=== PATIENT | female | born 1955 | race Caucasian/White ===

== ENCOUNTER 2017-02-10 10:04 | Emergency (ER) | payer OTHER ==
[2016-03-25 01:27] VITALS: BMI 24.7
[~2017-02-10 10:04] MED LIST: BACLOFEN20 M1 PO; BUSPAR10 MG PO; CARDIZEM30 MG PO; CELEXA20 MG PO; ESTRACE1 MG PO; HALDOL ORA30 MG/15 M PO; PROTONIX40 MG PO; SEROQUEL300 MG PO; SYNTHROID100 MCG PO; TYLENOL W/CODEI1 TAB PO
== END 2017-02-10 11:02 | disposition home or self-care (01) ==
LOC: D.ER 10:04
DX: G89.29 Other chronic pain (principal); I10 Essential (primary) hypertension; I95.9 Hypotension, unspecified; M54.16 Radiculopathy, lumbar region; E11.9 Type 2 diabetes mellitus without complications

== ENCOUNTER 2018-07-18 20:27 | Emergency (ER) | payer SELFPAY ==
[~2018-07-18] VITALS: Ht 162.6 cm; Wt 90.9 kg
[2018-07-18 20:53] VITALS: Ht 162.6 cm; Wt 90.9 kg
[2018-07-18 21:27] LABS: APPEARANCE CLEAR (CLEAR); BILIRUBIN NEGATIVE (NEGATIVE); COLOR YELLOW (YELLOW); GLUCOSE NEGATIVE (NEGATIVE); KETONE NEGATIVE (NEGATIVE); NITRITE NEGATIVE (NEGATIVE); PROTEIN NEGATIVE (NEGATIVE); UROBILINOGEN NORMAL (NORMAL)
[2018-07-18 23:58] LABS: HEMATOCRIT 39.2 % (36.0-48.0); HEMOGLOBIN 12.9 g/dL (12-16); LYMPHOCYTES 37.9 % (15-50); MCH 29.4 pg (26.0-34.0); MCHC 32.9 g/dL (31.0-37.0); MCV 89.3 fL (80.0-100.0); MEAN PLATELET VOLUME 9.3 fL (7.4-10.4); NEUTROPHILS 51.6 % (40-80); RBC 4.39 10x6/uL (4.00-5.40); RDW 13.9 % (11.5-14.5)
[2018-07-19] LABS: PLATELET COUNT 153 10x3/uL (130-400)
[2018-07-19 00:18] LABS: ALBUMIN 3.2 g/dL (3.4-5.0); ANION GAP 12.1 mmol/L (8-16); BILIRUBIN - TOTAL 0.22 mg/dL (0.2-1.3); CALCIUM 7.9 mg/dL (8.5-10.1); CARBON DIOXIDE 25.9 mmol/L (21.0-32.0); CREATININE - SERUM 0.9 mg/dL (0.6-1.3); PROTEIN - SERUM 6.7 g/dL (6.4-8.2)
[2018-07-19 01:15] VITALS: BP 132/88
== END 2018-07-19 01:16 | disposition home or self-care (01) ==
LOC: D.ER 20:27
PROVIDERS: Family Medicine
DX: R10.9 Unspecified abdominal pain (principal)

== ENCOUNTER 2021-03-10 08:25 | Inpatient (IN) | payer MEDICARE, OTHER ==
[2021-03-05 08:55] LABS: BASOPHILS 0.5 % (0-2); EOSINOPHILS 0.2 % (0-7); HEMATOCRIT 41.9 % (36.0-48.0); HEMOGLOBIN 13.9 g/dL (12-16); LYMPHOCYTES 33.7 % (15-50); MCH 30.4 pg (26.0-34.0); MCHC 33.2 g/dL (31.0-37.0); MCV 91.6 fL (80.0-100.0); MEAN PLATELET VOLUME 8.2 fL (7.4-10.4); MONOCYTES 8.2 % (2-11); NEUTROPHILS 57.4 % (40-80); RBC 4.58 10x6/uL (4.00-5.40); WBC 7.3 10x3/uL (4.8-10.8)
[2021-03-05 09:04] LABS: CALC OSMOLALITY 280 mosm/kg (275-300); CALCIUM 8.7 mg/dL (8.5-10.1); CARBON DIOXIDE 27.6 mmol/L (21.0-32.0); CHLORIDE - SERUM 102 mmol/L (98-107); CREATININE - SERUM 0.8 mg/dL (0.6-1.3); GLUCOSE 110 mg/dL (74-106); PLATELET COUNT 192 10x3/uL (130-400); SODIUM 139 mmol/L (136-145); UREA NITROGEN 17 mg/dL (7-18); eGFR NON AFRICAN AMERICAN 76 mL/min (90-120)
[2021-03-05 09:05] LABS: APTT 32.6 SECONDS (22.8-39.4); INR 1.13 (0.85-1.17); PROTIME 13.4 SECONDS (11.6-15.0)
[2021-03-05 11:11] LABS: BILIRUBIN NEGATIVE (NEGATIVE); KETONE NEGATIVE mg/dL (< 1+); NITRITE NEGATIVE (NEGATIVE); UROBILINOGEN NORMAL mg/dL (< 2)
[2021-03-10] VITALS (7 sets, daily range): BP systolic 111–132; BP diastolic 65–86; BMI 34.7
[~2021-03-10] VITALS: Ht 144.8 cm; Wt 139.5 kg
--- NOTE | ~2021-03-10 | OP ---
PATIENT NAME: MOSES SIDDIQUI MEDICAL RECORD: [id number] :53 LOCATION:[id number] ADMISSION DATE:03/10/21 SURGEON: CARLOTA CURTIS MD DATE OF OPERATION: 03/10/2021 PREOPERATIVE DIAGNOSIS: Osteoarthritis, right knee. POSTOPERATIVE DIAGNOSIS: Osteoarthritis, right knee. PROCEDURE PERFORMED: Right total knee arthroplasty. INDICATIONS: Ms. Siddiqui is a 65-year-old female with history of right knee pain and arthritis. She has had this for some time now and it is getting progressively worse beginning to affect her mobility. She has elected to proceed with surgery for right total knee arthroplasty. Risks, benefits, and alternatives of surgery were discussed with the patient and consent was obtained. DESCRIPTION OF PROCEDURE: The patient was met in the holding area where her identity and confirmation of procedure was performed. The right lower extremity was marked and she was taken to the operating room where she was placed supine on the operating table, and anesthesia was administered. Tourniquet was applied to the right thigh and the right leg was prepped and draped in a sterile fashion. The patient received preoperative antibiotics as well as TXA and a timeout was performed for initiating the case. On the initiation of the case, the leg was exsanguinated and the tourniquet was raised. Total tourniquet time was 100 minutes. A medial parapatellar approach was utilized for exposure. Knee was taken into flexion. Incision was made over the anterior knee, dissected down to the extensor mechanism. Quad tendon was then split along its medial border curving medially around the patella and extending medially down the edge of the patellar tendon. Knee was then taken into extension and tissue from the fat pad of the patella and over the anterior distal femur was excised. A flap of tissue off the medial tibial plateau was elevated and a portion of the medial meniscus was excised. The patella was then everted and the knee was brought into flexion. The cruciate ligaments were excised. [place]'s line was marked. Femoral canal was then drilled and the intramedullary guide was inserted. The distal femoral cutting block was pinned into position and our distal femur cut was then completed. The femur was sized to a size 3. The 4-in-1 cutting block was placed and pinned into position. Our anterior, posterior, and chamfer cuts were completed. Trial for a box cut was then placed and adjusted for alignment over the distal femur. It was then secured with pins and our box cut was completed using a reciprocating saw and osteotome. We then turned our attention to the tibia. A PCL retractor was then inserted and the extramedullary tibial guide was placed. It was adjusted for alignment taking 4 mm off the medial tibial plateau. The tibial cutting block was pinned into position. We again assessed our alignment. Our tibial cut was then completed and the bony piece was removed. Osteophytes were removed from around the medial tibial plateau. We then placed our femoral trial and trialled with the tibial plates and felt to have good balance both in flexion and extension. We then turned our attention to the patella. The patella was everted and a caliper was used to set the width of the patella. Cautery was used around the circumference. Patella was then cut at the floor of lateral facet, sized to a size 27 and drilled. The trial components were then removed. The tibia was again exposed and PCL retractor was inserted. Tibia was sized to a size 2. The tibial plate was pinned into position and then prepared using a tibial punch. OPERATIVE REPORT [id number] MOSES SIDDIQUI The trial components were removed. The laminar budder was then inserted and osteophytes were removed from the posterior aspect of the distal femur. Knee was then irrigated thoroughly with saline. The joint solution was injected around the capsule of the proximal tibia and the distal femur. Knee was repositioned in flexion and the bony ends were dried. Final components were cemented into place. Excess cement was removed throughout this process. Trial poly was placed and the knee was held in full extension while the cement was allowed to dry. Patella was held with a patellar clamp. Once the cement was dry, it was again taken through range of motion and had some laxity mid range. We therefore elected to place an 11 poly, which had better fit and stability throughout range of motion. Our final size 11 posterior stabilized poly was placed and tapped into position. The knee was again taken through range of motion, had good fit and stability. The knee was irrigated thoroughly with saline. A drain was placed in the lateral gutter. The extensor mechanism was closed with Vicryl suture. The subcutaneous tissues were irrigated thoroughly with saline. The subcutaneous tissues were closed with Vicryl and the skin was closed with red. Sterile dressing was placed. The patient was turned back over to anesthesia where she was awakened and taken to recovery room in stable condition. POSTOPERATIVE PLAN: The patient is going to be admitted for routine postoperative care. She will receive 24 hours of postoperative antibiotics to be started on DVT prophylaxis tomorrow. Physical therapy will be consulted to assist with mobilization and weightbearing as tolerated, right lower extremity. We will see how she does with therapy. She may be able to return home or may require rehabilitation. COMPLICATIONS: None. ESTIMATED BLOOD LOSS: 50 mL. ANESTHESIA: Spinal with peripheral nerve block. TRANSINT:[id number] Voice Confirmation ID: [id number] DOCUMENT ID: [id number] CARLOTA CURTIS MD CC: [id number] DICTATION DATE: 03/10/21 1459 CORE PLACER: 03/10/21 2326 ADM IN [place] [id number] [place] [id number]
[~2021-03-10 08:25] MED LIST changes: +BACLOFEN10 MG PO; +ESTRACE 0.5 MG0.5 MG PO; -ESTRACE1 MG PO; +LEVO-T175 MCG PO; +MOBIC7.5 MG PO; +POTASSIUM CHLO20 MEQ PO; +PROZAC20 MG PO; +ROPINIROLE HCL1 MG PO; -SEROQUEL300 MG PO; +SEROQUEL400 MG PO; +TRAZODONE HCL150 MG PO
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
--- NOTE | 2021-03-10 15:30 | NUR ---
RECEIVED TO ROOM 2231 VIA BED FROM PACU. A/O X3. NO C/O AT THIS TIME. DRESSING TO RIGHT KNEE IS DRY AND INTACT. BERUMEN PATENT WTIH CLEAR YELLOW URINE. DENIES NEEDS.
--- NOTE | 2021-03-10 16:58 | NUR ---
REQUESTED AND GIVEN ONE HYDROCODONE PO FOR C/O RIGHT KNEE PAIN LEVEL 4. WILL MONITOR.
--- NOTE | 2021-03-10 16:58 | NUR ---
REQUETED AND GIVEN ONE HYDROCODONE PO FOR C/O RIGHT KNEE PAIN LEVEL 4. WILL MONITOR. SLIGHT TREMORS NOTED TO EXTREMETIES. WILL MONITOR.
--- NOTE | 2021-03-10 19:10 | NUR ---
PATIENT RESTING IN BED WITH NO S/S OF DISTRESS. PLACED SCD HOSE ON PATIENT. PATIENT DENIES NEEDS AT THIS TIME. BED IN LOWEST POSTION AND CALL LIGHT IN REACH. ENCOURAGED PATIENT TO CALL WITH NEEDS.
--- NOTE | 2021-03-10 19:20 | NUR ---
ATE ALL OF SUPPER. TREMORS GONE AT THIS TIME. DENIES NEEDS. ON CPM AT 1830 NO CHANGES NOTED.
--- NOTE | 2021-03-10 21:19 | NUR ---
ADMINISTERED MEDS PER ORDERS. PATIENT LYNNETTE WELL. ENCOURAGED PATIENT TO CALL WITH NEEDS.
[2021-03-11] VITALS: BP 107/63
[2021-03-11 04:00] VITALS: BP 115/69
[2021-03-11 05:30] LABS: BASOPHILS 0.2 % (0-2); EOSINOPHILS 0 % (0-7); HEMATOCRIT 35.8 % (36.0-48.0); HEMOGLOBIN 11.9 g/dL (12-16); LYMPHOCYTES 16.6 % (15-50); MCH 30.3 pg (26.0-34.0); MCHC 33.3 g/dL (31.0-37.0); MCV 91.2 fL (80.0-100.0); MEAN PLATELET VOLUME 8.3 fL (7.4-10.4); MONOCYTES 6.4 % (2-11); NEUTROPHILS 76.8 % (40-80); PLATELET COUNT 182 10x3/uL (130-400); RBC 3.92 10x6/uL (4.00-5.40); RDW 13.7 % (11.5-14.5); WBC 10.1 10x3/uL (4.8-10.8)
[2021-03-11 06:04] LABS: ANION GAP 10.7 mmol/L (8-16); BILIRUBIN - TOTAL 0.19 mg/dL (0.2-1.3); CALCIUM 7.8 mg/dL (8.5-10.1); CARBON DIOXIDE 27.2 mmol/L (21.0-32.0); CREATININE - SERUM 0.9 mg/dL (0.6-1.3); POTASSIUM - SERUM 3.9 mmol/L (3.5-5.1); PROTEIN - SERUM 5.9 g/dL (6.4-8.2)
--- NOTE | 2021-03-11 06:30 | NUR ---
D/C'D BERUMEN PER ORDERS, TIP INTACT. PLACED PATIENT ON CPM TO RIGHT KNEE.
--- NOTE | 2021-03-11 08:13 | NUR ---
AWAKE AND ALERT. ORIENTED X3. NO C/O AT THIS TIME. LUNGS ARE CLEAR BILATERALLY, NO COUGH NOTED. SKIN IS INTACT WITHOUT REDNESS EXCEPT INCISION TO RIGHT KNEE WHICH HAS A DRY INTACT DRESSING IN PLACE. ON CPM AT THIS TIME. SL TO LEFT FOREARM IS PATENT WITHOUT REDNESS AT INSERTION SITE. DENIES NEEDS.
--- NOTE | 2021-03-11 09:00 | NUR ---
ATE MOST OF BREAKFAST. TOOK AM MEDS WITHOUT DIFFICULTY. DENIES NEEDS.
[2021-03-11 09:02] VITALS: BP 120/81
[2021-03-11 13:22] VITALS: BP 136/76
--- NOTE | 2021-03-11 14:21 | NUR ---
REQUESTED AND GIVEN ONE HYDROCODONE PO FOR C/O RIGHT KNEE PAIN LEVEL 10. WILL MONITOR.
[2021-03-11 18:04] VITALS: BP 117/62
--- NOTE | 2021-03-11 19:12 | NUR ---
UP TO BSC WITH MIN ASSIST OF ONE. VOIDED CLEAR YELLOW URINE WITHOUT DIFFICULTY. DENIES NEEDS. NO CHANGES NOTED.
[2021-03-11 19:55] VITALS: BP 119/63
--- NOTE | 2021-03-11 20:00 | NUR ---
ALERT RESTING IN BED, CRYING WITH PAIN TO KNEE, HYDROCODONE GIVEN ORDERED WITH SCHEDULED PM MEDS, SEE SHIFT ASSESSMENT, CALL LIGHT IN REACH
[2021-03-12] VITALS (7 sets, daily range): BP systolic 121–151; BP diastolic 60–93; Ht 144.8 cm; Wt 139.5 kg
--- NOTE | 2021-03-12 06:00 | NUR ---
SUDDENLY CRYING OUT LOUD SAYING MY LEG IS KILLING ME, I CANT WAIT AN HOUR FOR A PAIN PILL, I NEED THE MORPHINE LIKE THEY GAVE ME YESTERDAY, BECAME MORE UPSET AND CRYING WHEN ENCOURAGED TO WAIT FOR PAIN PILL, MORPHINE GIVEN ORDERED IMEDIATELY CALMED DOWN PLACED ON CPM
[2021-03-12 07:17] LABS: BASOPHILS 0.3 % (0-2); EOSINOPHILS 0.2 % (0-7); HEMATOCRIT 34.5 % (36.0-48.0); HEMOGLOBIN 11.7 g/dL (12-16); LYMPHOCYTES 21.9 % (15-50); MCH 30.8 pg (26.0-34.0); MCHC 33.9 g/dL (31.0-37.0); MCV 90.9 fL (80.0-100.0); MEAN PLATELET VOLUME 8.1 fL (7.4-10.4); MONOCYTES 10.3 % (2-11); NEUTROPHILS 67.3 % (40-80); PLATELET COUNT 179 10x3/uL (130-400); RDW 13.9 % (11.5-14.5); WBC 8.2 10x3/uL (4.8-10.8)
[2021-03-12 07:45] LABS: ALBUMIN 3.1 g/dL (3.4-5.0); ALKALINE PHOSPHATASE 96 U/L (30-120); BILIRUBIN - TOTAL 0.32 mg/dL (0.2-1.3); CALC OSMOLALITY 283 mosm/kg (275-300); CALCIUM 7.6 mg/dL (8.5-10.1); CARBON DIOXIDE 26.4 mmol/L (21.0-32.0); CHLORIDE - SERUM 105 mmol/L (98-107); CREATININE - SERUM 0.8 mg/dL (0.6-1.3); GLUCOSE 136 mg/dL (74-106); SODIUM 141 mmol/L (136-145); UREA NITROGEN 15 mg/dL (7-18); eGFR NON AFRICAN AMERICAN 76 mL/min (90-120)
[2021-03-12 07:46] LABS: ALT (SGPT) 28 U/L (10-68)
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
--- NOTE | 2021-03-12 09:06 | NUR ---
PHYSICAL THERAPY STATES PT REFUSING TO WORK WITH THEM BECAUSE SHE IS UPSET WITH THE CARE SHE IS GETTING AND WANTS TO TALK TO DR CURTIS RIGHT NOW
--- NOTE | 2021-03-12 09:40 | MORECARE ---
CASE MANAGEMENT DISCHARGE SUMMARY PATIENT: MOSES GARCIA UNIT: [id number] ADM DATE: 03/11/21 AGE: 65 : 54 SEX: F ROOM/BED: [facility] AUTHOR: JUANA ELLISON PHYSICIAN: REFERRING PHYSICIAN: CARLOTA CURTIS MD DATE OF SERVICE: 03/12/21 Case Management Discharge Planning Summary DCP REVIEW SUMMARY ANTICIPATED D/C DATE: EXPECTED LOS : CASE STATUS: DCP Initiated INITIAL REVIEW: 03/10/2021 INITIAL REVIEWER: Lanny May FINAL DISCHARGE DISPOSITION: : FINAL REVIEWER: FINAL REVIEW DATE: DCP Focus Questions & Answers QUESTION: ANSWER : PATIENT: MOSES GARCIA ENCOUNTER: [id number] MEDICAL RECORD#: [id number] ADMISSION DATE: 03/11/2021 DISCHARGE DATE: ATTENDING MD: : AGE: 65 MARITAL STATUS: W DC PLAN ID: [id number] FACILITY: [facility] PRINTED ON: 03/12/21 9:40 CT All edits/amendments must be made on the electronic document DICTATION DATE: 03/12/21939 ADJUNCT INSTRUCTOR IN ECONOMICS: DM 03/12/21939 RPT#: [id number] DC DATE: STATUS: ADM IN [facility] [address] [place] [address] END OF REPORT
--- NOTE | 2021-03-12 20:00 | NUR ---
ALERT RESTING IN BED CPM IN USE, STATES PAIN MUCH BETTER THAN EARLIER, SEE SHIFT ASSESSMENT, CALL LIGHT IN REACH
[2021-03-13 04:43] VITALS: BP 121/68
[2021-03-13 06:16] LABS: BASOPHILS 0.5 % (0-2); EOSINOPHILS 0.4 % (0-7); HEMATOCRIT 34.7 % (36.0-48.0); HEMOGLOBIN 11.7 g/dL (12-16); LYMPHOCYTES 31.5 % (15-50); MCH 30.6 pg (26.0-34.0); MCHC 33.6 g/dL (31.0-37.0); MCV 91.1 fL (80.0-100.0); MONOCYTES 11.9 % (2-11); NEUTROPHILS 55.7 % (40-80); PLATELET COUNT 179 10x3/uL (130-400); RBC 3.82 10x6/uL (4.00-5.40); RDW 13.5 % (11.5-14.5)
[2021-03-13 06:33] LABS: ALBUMIN 2.9 g/dL (3.4-5.0); ALKALINE PHOSPHATASE 100 U/L (30-120); ALT (SGPT) 31 U/L (10-68); BILIRUBIN - TOTAL 0.46 mg/dL (0.2-1.3); CALC OSMOLALITY 281 mosm/kg (275-300); CALCIUM 7.6 mg/dL (8.5-10.1); CARBON DIOXIDE 26.6 mmol/L (21.0-32.0); CHLORIDE - SERUM 106 mmol/L (98-107); CREATININE - SERUM 0.6 mg/dL (0.6-1.3); GLUCOSE 129 mg/dL (74-106); POTASSIUM - SERUM 3.8 mmol/L (3.5-5.1); PROTEIN - SERUM 5.9 g/dL (6.4-8.2); SODIUM 141 mmol/L (136-145); eGFR NON AFRICAN AMERICAN > 90 mL/min (90-120)
[2021-03-13 06:34] LABS: UREA NITROGEN 10 mg/dL (7-18)
--- NOTE | 2021-03-13 07:56 | NUR ---
ALERT AND ORIENTED. ASSESSMENT COMPLETE. DENIES NEEDS. BED LOW. CALL GUPTA AND PERSONAL ITEMS IN REACH. WILL CONTINUE TO MONITOR.
[2021-03-13 08:40] VITALS: BP 133/85
--- NOTE | 2021-03-13 10:00 | NUR ---
RESTING IN BED. DENIES NEEDS. WILL CONTINUE TO MONITOR.
--- NOTE | 2021-03-13 10:07 | MORECARE ---
CASE MANAGEMENT DISCHARGE SUMMARY PATIENT: MOSES GARCIA UNIT: [id number] ADM DATE: 03/11/21 AGE: 65 : 54 SEX: F ROOM/BED: [facility] AUTHOR: JUANA ELLISON PHYSICIAN: REFERRING PHYSICIAN: CARLOTA CURTIS MD DATE OF SERVICE: 03/13/21 Case Management Discharge Planning Summary DCP REVIEW SUMMARY ANTICIPATED D/C DATE: EXPECTED LOS : CASE STATUS: DCP Initiated INITIAL REVIEW: 03/10/2021 INITIAL REVIEWER: Lanny May FINAL DISCHARGE DISPOSITION: : FINAL REVIEWER: FINAL REVIEW DATE: DCP Focus Questions & Answers QUESTION: ANSWER : PATIENT: MOSES GARCIA ENCOUNTER: [id number] MEDICAL RECORD#: [id number] ADMISSION DATE: 03/11/2021 DISCHARGE DATE: ATTENDING MD: : AGE: 65 MARITAL STATUS: W DC PLAN ID: [id number] FACILITY: [facility] PRINTED ON: 03/13/21 10:07 CT All edits/amendments must be made on the electronic document DICTATION DATE: 03/13/21 1007 CARPENTER FOREMAN: DM 03/13/21 1007 RPT#: [id number] DC DATE: STATUS: ADM IN [facility] [address] [place] [address] END OF REPORT
[2021-03-13 12:57] VITALS: BP 146/74
--- NOTE | 2021-03-13 13:05 | MORECARE ---
CASE MANAGEMENT DISCHARGE SUMMARY PATIENT: MOSES GARCIA UNIT: [id number] ADM DATE: 03/11/21 AGE: 65 : 54 SEX: F ROOM/BED: D.[facility] [place][note 2] AUTHOR: TERRA,DOC PHYSICIAN: REFERRING PHYSICIAN: CARLOTA CURTIS MD DATE OF SERVICE: 03/13/21 Case Management Discharge Planning Summary COMMENTS ENTERED DATE: 03/13/21 12:58 CT COMMENT TYPE: Discharge Planning REVIEWER: Lanny May CM MET WITH PATIENT AT BEDSIDE TO DISCUSS DC PLANNING NEEDS. PATIENT HAS ALL EQUIPMENT NEEDED THROUGH [facility] [facility]. SHE PLANS TO DC TO HOME TODAY AND WILL NEED HOME HEALTH. PATIENT LIVES ALONE BUT HAVE FRIENDS AND [employer]IENTAL [employer] MEMBERS THAT WILL HELP HER AT HOME. I HAVE FAXED REFERRAL TO [facility]. CM TO FOLLOW AND ASSIST NEEDED. DCP REVIEW SUMMARY ANTICIPATED D/C DATE: EXPECTED LOS : CASE STATUS: DCP Initiated INITIAL REVIEW: 03/10/2021 INITIAL REVIEWER: Lanny May FINAL DISCHARGE DISPOSITION: : FINAL REVIEWER: FINAL REVIEW DATE: DCP Focus Questions & Answers QUESTION: ANSWER : PROVIDER NETWORKING REVIEW DATE: 03/13/2021 SERVICE TYPE: Home Health Care REVIEWER: Lanny May PATIENT: MOSES GARCIA ENCOUNTER: [id number] MEDICAL RECORD#: [id number] ADMISSION DATE: 03/11/2021 DISCHARGE DATE: ATTENDING MD: EDY: AGE: 65 MARITAL STATUS: W DC PLAN ID: [id number] FACILITY: [facility] PRINTED ON: 03/13/21 13:05 CT All edits/amendments must be made on the electronic document DICTATION DATE: 03/13/21 1305 LAUNCH MANAGER: BRITNI 03/13/21 1305 RPT#: [id number] DC DATE: STATUS: ADM IN [facility] [address] [place] [address] END OF REPORT
[2021-03-13] MEDS ORDERED: PERCOCET 5-3251 TAB PO (13:09)
[2021-03-13] MEDS ORDERED: ELIQUIS2.5 MG PO (13:10)
--- NOTE | 2021-03-13 14:23 | NUR ---
DC EDUCATION PROVIDED BOTH WRITTEN AND VERBAL. VERBALIZED UNDERSTANDING. DENIES FURTHER QUESTIONS. IV REMOVED FROM RFA WITH TIP INTACT. DRY DRSG PROVIDED TO PATIENT FOR DRSG CHANGE. PATIENT DENIES NEEDS. PATIENT DC HOME WITH FRIEND WITH ALL BELONGINGS.
--- NOTE | 2021-03-14 09:50 | MORECARE ---
CASE MANAGEMENT DISCHARGE SUMMARY PATIENT: MOSES GARCIA UNIT: [id number] ADM DATE: 03/11/21 AGE: 65 : 54 SEX: F ROOM/BED: D.[facility] AUTHOR: TERRA,DOC PHYSICIAN: REFERRING PHYSICIAN: CARLOTA CURTIS MD DATE OF SERVICE: 03/14/21 Case Management Discharge Planning Summary COMMENTS ENTERED DATE: 03/13/21 12:58 CT COMMENT TYPE: Discharge Planning REVIEWER: Lanny May CM MET WITH PATIENT AT BEDSIDE TO DISCUSS DC PLANNING NEEDS. PATIENT HAS ALL EQUIPMENT NEEDED THROUGH [facility] [facility]. SHE PLANS TO DC TO HOME TODAY AND WILL NEED HOME HEALTH. PATIENT LIVES ALONE BUT HAVE FRIENDS AND [employer] MEMBERS THAT WILL HELP HER AT HOME. I HAVE FAXED REFERRAL TO [facility]. CM TO FOLLOW AND ASSIST NEEDED. DCP REVIEW SUMMARY ANTICIPATED D/C DATE: EXPECTED LOS : CASE STATUS: DCP Initiated INITIAL REVIEW: 03/10/2021 INITIAL REVIEWER: Lanny May FINAL DISCHARGE DISPOSITION: : FINAL REVIEWER: FINAL REVIEW DATE: DCP Focus Questions & Answers QUESTION: ANSWER : PROVIDER NETWORKING REVIEW DATE: 03/13/2021 SERVICE TYPE: Home Health Care REVIEWER: Lanny May PATIENT: MOSES GARCIA ENCOUNTER: [id number] MEDICAL RECORD#: [id number] ADMISSION DATE: 03/11/2021 DISCHARGE DATE: 03/13/2021 ATTENDING MD: EDY: AGE: 65 MARITAL STATUS: W DC PLAN ID: [id number] FACILITY: [facility] PRINTED ON: 03/14/21 9:50 CT All edits/amendments must be made on the electronic document DICTATION DATE: 03/14/21949 ENGAGEMENT LEAD: DM 03/14/2150 RPT#: [id number] DC DATE:03/13/21 STATUS: DIS IN [facility] [address] [place] [address] END OF REPORT
== END 2021-03-13 14:25 | disposition home health service (06) | DRG 470 ==
LOC: D.MS 08:25 → D.OPS 08:25 → D.MS 15:24 → D.OPS 16:12 → OBSVTIME 16:13 → D.MS 03-11 14:29
PROVIDERS: Family Medicine; ADMIT Orthopaedic Surgery; ATTEND Orthopaedic Surgery
PROC: 0SRC0J9 Replacement of Right Knee Joint with Synthetic Substitute, Cemented, Open Approach (ICD-10-PCS; principal; 2021-03-10 11:30)
DX: M17.11 Unilateral primary osteoarthritis, right knee (principal); G89.29 Other chronic pain; M54.9 Dorsalgia, unspecified; M81.0 Age-related osteoporosis without current pathological fracture; F32.9 Major depressive disorder, single episode, unspecified; Z98.890 Other specified postprocedural states